=== PATIENT | male | born 2000 | race Caucasian/White ===

== ENCOUNTER 2019-12-23 09:03 | Emergency (ER) | payer OTHER ==
[~2019-12-23] VITALS: Ht 177.8 cm; Wt 79.5 kg
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
--- NOTE | 2019-12-23 10:24 | NUR ---
PT. IS AMBULATORY TO THE DISCHARGE DESK WITH CRUTCHES. DISCHARGE INSTRUCTIONS HAVE BEEN GIVEN WITH UNDERSTANDING VERBALZIED. PT. HAS NO QUESTIONS AT THIS TIME. VSS.
[2019-12-23 10:25] VITALS: BP 132/81
[2019-12-23] MEDS ORDERED: IBUPROFEN 800 MG TABLET PO ONE (10:30)
== END 2019-12-23 10:29 | disposition home or self-care (01) ==
LOC: ED 10:20
DX: S80.11XA Contusion of right lower leg, initial encounter (principal); W23.1XXA Caught, crushed, jammed, or pinched between stationary objects, initial encounter; Y93.89 Activity, other specified; Y92.89 Other specified places as the place of occurrence of the external cause; Y99.0 Civilian activity done for income or pay
CPT/HCPCS: 99283